=== PATIENT | male | born 1995 | race Two or more races ===

== ENCOUNTER 2025-07-20 15:36 | Observation (INO) ==
--- NOTE | 2025-07-20 16:04 | Emergency Department Note ---
Impression & Plan Acute hypoxic respiratory failure, Acute asthma exacerbation, Rhinovirus infection ED Provider Note NAME: BAILEY DOOLEY AGE: 30 SEX: M : 1995 ARRIVES VIA: Walk-In INFORMANT: Patient ED PROVIDER(S): Brayan Adkins DO CHIEF COMPLAINT: Cough, congestion, shortness of breath, sore throat HPI: Patient is a 30-year-old male with a past medical history of asthma who presents to the ER for cough, congestion and shortness of breath. Symptoms initially started on Wednesday and have worsened. Has been using his neb treatment with minimal improvement but then it has been getting worse again. He denies any headache or change in vision. No chest pain. No belly pain. No nausea, vomiting, or diarrhea. Family at bedside provides additional history notes that he does have a history of asthma. Has been using those nebs. ADDITIONAL HISTORY OBTAINED: Per HPI Chronic Medical/Social Conditions Affecting Care: Per HPI PAST MEDICAL HISTORY:See Below PAST SURGICAL HISTORY:See Below FAMILY HISTORY:See Below SOCIAL HISTORY:See Below HOME MEDICATIONS:See Below ALLERGIES:See Below VITALS:See Below PHYSICAL EXAMINATION: GENERAL: Sitting up in bed, alert, on oxygen, persistent cough EYE EXAM: normal conjunctiva. PERRL and EOM's grossly intact. OROPHARYNX: no exudate, no erythema, lips, buccal mucosa, and tongue normal and mucous membranes are moist NECK: supple, no nuchal rigidity, no adenopathy, non-tender LUNGS: Diffuse wheezing bilaterally. Normal chest wall mechanics HEART: no murmurs, S1 normal and S2 normal ABDOMEN: abdomen soft, non-tender, normo-active bowel sounds, no masses, no rebound or guarding. UPPER EXTREMITIES: upper extremities are grossly normal. LOWER EXTREMITIES: No pitting edema. NEURO EXAM: Normal sensorium, cranial nerves II-XII grossly intact, normal speech, no gross weakness of arms, no gross weakness of legs. MEDICAL DECISION MAKING: Patient is a 21-year-old male who presents ER for shortness of breath associate with cough congestion. IVs were established and blood work was obtained. On exam he was found to have diffuse wheezing bilaterally. He was on oxy mask. Patient was given hour-long DuoNeb as well as IV steroids. Oxygen was titrated down to eventually 2 L nasal cannula. Chest x-ray without any focal infiltrate. Respiratory rate did improve. He is feeling better. Labs show mild leukocytosis of 11,000. No significant anemia. BMP with LFTs troponin and lipase is unremarkable. Viral panel was positive for rhinovirus. With the hypoxia case was discussed with the hospitalist for further evaluation management and treatment. Consults/Care Managements Discussions: Per MDM Triage Nursing notes reviewed. Limited review of prior medical records performed Vital Signs: reviewed and remarkable for tachy Differential diagnosis: Differential diagnoses includes but is not limited to pneumonia, bronchitis, COPD/Asthma exacerbation, pneumothorax, pulmonary embolism, congestive heart failure, acute coronary syndrome ER treatment provided: See below Diagnostics interpreted by me include EKG and cardiac monitoring as listed below: -Cardiac Monitoring: An order was placed for continuous cardiac monitoring. The monitor shows a rate of 112 with sinus rhythm. -ECG: Sinus tachycardia rate of 112 Normal axis No PVCs QTc 444 -Laboratory studies:Interpreted by me as stated above in MDM and shown below. Imaging studies: Xrays: As interpreted by me: Portable AP upright 1 view of the chest shows no focal infiltrate CTs show: none Procedures:none Critical Care: I have personally spent 33 minutes of critical care time in the direct management of this patient. This includes bedside care, interpretation of diagnostic studies, and testing, discussion with consultants, patient, and family members, and other required patient management activities. This 33 minutes is in excess of all separately billable procedures. Past Med/Surg History Problem List (Updated 07/20/25 @ 17:59 by Brayan Adkins DO) Acute hypoxic respiratory failure (Acute) Acute bronchitis Rhinovirus infection (Acute) Acute asthma exacerbation (Acute) Social History Smoking Status: Never smoker Preferred Language: Bolivian Feels Safe at Home: Yes Allergies Allergies Allergy/AdvReac Type Severity Reaction Status Date / Time No Known Allergies Allergy Unverified 07/20/25 17:00 Home Meds Home Medications Medication Instructions Recorded Confirmed albuterol sulfate 90 mcg/actuation 2 inh inhalation Q4H PRN 07/20/25 07/20/25 aerosol inhaler SOB/Wheezing Results & Data (ED) Vital Signs Vital Signs - 24 hr 07/20/25 15:43 07/20/25 15:59 07/20/25 16:06 Temperature 37.1 C Temperature Source Temporal Artery Scan Pulse Rate 119 H 112 H Pulse Rate from SpO2 Sensor 112 H Respiratory Rate 20 31 H Respiratory Effort / Characteristics Non-Labored Spontaneous Respiratory Depth Normal Blood Pressure 129/84 145/92 H Blood Pressure Mean 99 109 Pulse Oximetry 86 L 92 Oxygen Delivery Method Room Air Oxymask Oxymask Oxygen Flow Rate 8 8 Sepsis Recent Fever Within 48 Hours No Sepsis New/Unexplained Change in Mental Status No Sepsis Action Taken by Nursing No Action Required 07/20/25 16:15 07/20/25 16:30 07/20/25 16:45 Temperature Temperature Source Pulse Rate 108 H 111 H 122 H Pulse Rate from SpO2 Sensor 108 H 118 H 122 H Respiratory Rate 29 H 25 H 25 H Respiratory Effort / Characteristics Respiratory Depth Blood Pressure 117/77 117/77 125/72 Blood Pressure Mean 90 90 89 Pulse Oximetry 92 94 95 Oxygen Delivery Method Oxymask Oxymask Oxymask Oxygen Flow Rate 8 8 8 Sepsis Recent Fever Within 48 Hours Sepsis New/Unexplained Change in Mental Status Sepsis Action Taken by Nursing 07/20/25 17:00 07/20/25 17:03 07/20/25 17:15 Temperature Temperature Source Pulse Rate 131 H 113 H 122 H Pulse Rate from SpO2 Sensor 130 H 121 H Respiratory Rate 24 24 Respiratory Effort / Characteristics Respiratory Depth Blood Pressure 125/72 133/91 Blood Pressure Mean 89 105 Pulse Oximetry 91 89 L Oxygen Delivery Method Room Air Room Air Oxygen Flow Rate Sepsis Recent Fever Within 48 Hours Sepsis New/Unexplained Change in Mental Status Sepsis Action Taken by Nursing 07/20/25 17:30 Temperature Temperature Source Pulse Rate 117 H Pulse Rate from SpO2 Sensor 117 H Respiratory Rate 24 Respiratory Effort / Characteristics Respiratory Depth Blood Pressure 133/91 Blood Pressure Mean 105 Pulse Oximetry 91 Oxygen Delivery Method Nasal Cannula Oxygen Flow Rate 2 Sepsis Recent Fever Within 48 Hours Sepsis New/Unexplained Change in Mental Status Sepsis Action Taken by Nursing Laboratory Data 07/20/25 16:02 07/20/25 16:02 Lab Results 07/20/25 07/20/25 Range/Units 16:02 16:16 WBC 11.42 H (4.8-10.8) K/ul RBC 5.95 (4.70-6.10) M/uL Hgb 17.9 (14.0-18.0) g/dL Hct 48.8 (42.0-52.0) % MCV 82.0 (80.0-100.0) fL MCH 30.1 (25.0-34.0) pg MCHC 36.7 H (32.0-36.0) g/dL RDW Std Deviation 36.8 (36.4-46.3) fL RDW Coeff of Izabella 12.4 (11.5-14.5) % Plt Count 210 (130-400) K/uL MPV 10.1 (9.4-12.4) fL Immature Gran % (Auto) 0.2 % Neut % (Auto) 62.9 % Lymph % (Auto) 22.6 % Runnels % (Auto) 10.1 % Eos % (Auto) 3.8 % Baso % (Auto) 0.4 % Neut # (Auto) 7.20 H (1.40-6.50) K/uL Lymph # (Auto) 2.58 (1.20-3.40) K/uL Runnels # (Auto) 1.15 H (0.11-0.59) K/uL Eos # (Auto) 0.43 (0.00-0.50) K/uL Baso # (Auto) 0.04 (0.00-0.20) K/uL Immature Gran # (Auto) 0.02 (0.01-0.20) K/uL Sodium 137 (136-145) mmol/L Potassium 3.8 (3.5-5.1) mmol/L Chloride 101 (98-107) mmol/L Carbon Dioxide 26 (21-32) mmol/L Anion Gap 10 (3-11) BUN 12 (6-23) mg/dl Creatinine 1.20 (0.6-1.4) mg/dl Est Cr Clr Drug Dosing 105.6 ml/min eGFR 83.95 BUN/Creatinine Ratio 10.0 (10-20) Glucose 110 H (70-99(Fasting)) mg/dl Calcium 9.2 (8.6-10.3) mg/dl Total Bilirubin 1.8 H (0.2-1.0) mg/dl AST 27 (13-39) U/L ALT 19 (7-52) U/L Alkaline Phosphatase 91 (34-104) U/L Troponin I High Sens 2.3 (0-20) pg/ml Total Protein 7.7 (6.0-8.3) gm/dl Albumin 4.8 (3.4-5.0) gm/dl Globulin 2.9 (2.5-4.0) gm/dl Albumin/Globulin Ratio 1.7 (0.9-2) Lipase 7 L (11-82) U/L Procalcitonin < 0.02 (0-0.5) ng/ml Adenovirus (PCR) Not Detected (NotDetected) B. pertussis DNA (PCR) Not Detected (NotDetected) B.parapertussis DNA PCR Not Detected (NotDetected) C. pneumoniae DNA (PCR) Not Detected (NotDetected) Coronavirus OC43 (PCR) Not Detected (NotDetected) Coronavirus HKU1 (PCR) Not Detected (NotDetected) Coronavirus 229E (PCR) Not Detected (NotDetected) SARS-CoV-2 (PCR) Not Detected (NotDetected) Coronavirus NL63 (PCR) Not Detected (NotDetected) Human Metapneumovir PCR Not Detected (NotDetected) Influenza Type A (PCR) Not Detected (NotDetected) Influenza Type B (PCR) Not Detected (NotDetected) M. pneumoniae (PCR) Not Detected (NotDetected) Parainfluenza 1 (PCR) Not Detected (NotDetected) Parainfluenza 2 (PCR) Not Detected (NotDetected) Parainfluenza 3 (PCR) Not Detected (NotDetected) Parainfluenza 4 (PCR) Not Detected (NotDetected) RSV (PCR) Not Detected (NotDetected) Entero/Rhino (PCR) DETECTED A (NotDetected) Administered Medications Doxycycline Hyclate (Doxycycline Hyclate 100 Mg Cap) 100 mg PO BID [facility] Stop: 07/25/25 17:14 Last Admin: 07/20/25 17:25 Dose: 100 mg Documented By: KR Discontinued Medications Albuterol (Albut/Ipratrop 3mg/0.5mg Neb 3 Ml Vial) 9 ml NEB NOW STA; Protocol Stop: 07/20/25 16:02 Last Admin: 07/20/25 16:08 Dose: 9 ml Documented By: ARS Magnesium Sulfate/Dextrose (Magnesium Sulfate / D5w) 1 gm in 100 mls @ 100 mls/hr IV NOW STA Stop: 07/20/25 17:53 Last Admin: 07/20/25 17:01 Dose: 100 mls/hr Documented By: TOMEKA Ioversol (Optiray 320 125ml) 119 ml IV ONCE ONE Stop: 07/20/25 18:29 Last Admin: 07/20/25 18:29 Dose: 119 ml Documented By: YAIR Methylprednisolone (Methylprednisolone 125 Mg/2 Ml Vial) 80 mg IV NOW STA Stop: 07/20/25 16:02 Last Admin: 07/20/25 16:08 Dose: 80 mg Documented By: TOMEKA Imaging Data Radiologist's Impression: Chest X-Ray 07/20/25 16:01 Clinical History: Chest pain Technique: A frontal view of the chest was obtained Findings: There are no confluent pulmonary infiltrates. The heart size is within normal limits. No pleural effusion or pneumothorax is seen. There is no definite pulmonary nodule. No fracture is noted. No foreign body is seen Impression: No active disease Electronically signed by Oswaldo Osei 07-20-2025 4:39 PM Chest CTA 07/20/25 16:52 Clinical history: Chest pain and shortness of breath Technique: Axial computed tomography images were obtained of the chest after the administration of intravenous contrast according to the CT angiogram protocol Findings: There is no definite sign of pulmonary embolism. There is a cluster of nodular opacities in the anterior right lower lobe, measuring up to 7 mm. There is a small right pleural effusion. There is no left pleural effusion or pneumothorax. There is dependent subsegmental atelectasis in both lower lobes. No endobronchial lesion is seen There is no mediastinal, hilar, or axillary adenopathy. The thoracic aorta appears unremarkable with no sign of aneurysm or dissection. There is no pericardial effusion The visualized upper abdomen appears unremarkable. No fracture is seen. No focal osseous lesion is evident Impression: 1. No definite sign of pulmonary embolism 2. Cluster of nodular opacities in the right lower lobe that could be due to pneumonia 3. Small right pleural effusion Electronically signed by Oswaldo Osei 07-20-2025 7:24 PM Discharge Plan Visit Data Chief Complaint: Respiratory Problems Stated Complaint: DIFFICULTY BRATHING PULSE OX LOW AT HOME ED Provider: Brayan Adkins Discharge Problem: Acute hypoxic respiratory failure, Acute asthma exacerbation, Rhinovirus infection Condition: Critical Forms Stand Alone Forms: [employer] Prescriptions Prescriptions: No Action albuterol sulfate 90 mcg/actuation Hfa Aerosol Inhaler 2 inh INHALATION Q4H PRN (Reason: SOB/Wheezing) Referrals Referrals: PCP,NO [Physician] - Discharge Problem: Acute asthma exacerbation Qualifiers: Asthma severity: unspecified severity Asthma persistence: unspecified Qualified Code(s): J45.901 - Unspecified asthma with (acute) exacerbation
[2025-07-20] MEDS: ALBUT/IPRATROP 3MG/0.5MG NEB 3 ML VIAL NEB STA (16:08)
[2025-07-20 16:19] LABS: Hematocrit (blood only) 48.8 % (42.0-52.0); Hemoglobin 17.9 g/dL (14.0-18.0); Immature Granulocytes # (auto) 0.02 K/uL (0.01-0.20); Immature Granulocytes % (auto) 0.2 %; Mean Corpuscular Hemoglobin 30.1 pg (25.0-34.0); Mean Corpuscular Volume 82.0 fL (80.0-100.0); Platelet Count 210 K/uL (130-400); RDW Standard Deviation 36.8 fL (36.4-46.3); Red Blood Count 5.95 M/uL (4.70-6.10); White Blood Count 11.42 K/ul (4.8-10.8)
[2025-07-20 16:37] LABS: Alanine Aminotransferase 19.0 U/L (7-52); Albumin Globulin Ratio 1.7 (0.9-2); Albumin Level 4.8 gm/dl (3.4-5.0); Alkaline Phosphatase 91.0 U/L (34-104); Anion Gap 10.0 (3-11); Bilirubin,Total 1.8 mg/dl (0.2-1.0); Blood Urea Nitrogen 12.0 mg/dl (6-23); Calcium 9.2 mg/dl (8.6-10.3); Carbon Dioxide 26.0 mmol/L (21-32); Chloride 101.0 mmol/L (98-107); Creatinine Clr Calc Pharmacy 105.6 ml/min; Globulin 2.9 gm/dl (2.5-4.0); Glucose 110.0 mg/dl (70-99(Fasting)); Lipase 7.0 U/L (11-82); Potassium 3.8 mmol/L (3.5-5.1); Sodium 137.0 mmol/L (136-145); Total Protein 7.7 gm/dl (6.0-8.3)
--- NOTE | 2025-07-20 16:39 | XRay Report ---
Clinical History: Chest pain Technique: A frontal view of the chest was obtained Findings: There are no confluent pulmonary infiltrates. The heart size is within normal limits. No pleural effusion or pneumothorax is seen. There is no definite pulmonary nodule. No fracture is noted. No foreign body is seen Impression: No active disease Electronically signed by Oswaldo Osei 07-20-2025 4:39 PM
--- NOTE | 2025-07-20 16:55 | History & Physical Report ---
Date of Service July 20, 2025 Assessment & Plan (1) Acute asthma exacerbation: (2) Rhinovirus infection: (3) Acute bronchitis: (4) Acute hypoxic respiratory failure: Plan Patient is a 30-year-old male with past medical history significant for asthma who presented to the ED with c/o cough, congestion and progressive shortness of breath since earlier this week. Acute asthma exacerbation Acute bronchitis ISO rhinovirus infection Acute hypoxic respiratory failure Notably tachycardic and tachypneic on arrival to ED with respiratory rate in the 30s. Initially required 8L via Oxymask. At the time of our evaluation in the ED around 17:00, patient was saturating around 89 to 91% on RA. HR in the 130s s/p hour-long Duoneb in ED >> likely albuterol as well as tachypnea c/t tachycardia. RR now slightly improved. Also received 80 mg IV Solu-Medrol in the ED. Mild leukocytosis appreciated on initial labs, otherwise labs look okay. Check procalcitonin. (+) for entero-/rhinovirus on respiratory BioFire panel. CXR without evidence of any active disease. Will place on 1L NC for now given low sats on RA and monitor. Check chest CT PE protocol. Remains afebrile, BP stable. Reports productive cough of yellow/green sputum, will empirically start on po doxy course. Pt reports 5 asthma exacerbations/year >> not currently on any maintenance inhalers. Reports asthma triggers including cat dander, cold weather exposure. Would likely benefit from allergy testing; would also consider maintenance inhaler initiation. DVT Prophylaxis: SCDs/TEDs for now pending chest CTA results, encourage ambulation as tolerated Code Status: FULL CODE PCP: Janes Fink MD Disposition: Admit to med/telemetry Patient seen in collaboration with Dr. Starks. Please see addendum. I spent a total of 70 minutes coordinating, documenting, and providing care for this patient excluding time spent in the performance of separately billed services or time spent by another provider/QHP. This included personally reviewing all current laboratories and imaging studies, medical reconciliation, outpatient chart review and discussion with specialists. This chart was completed in part utilizing Speech Voice Recognition Software. Grammatical errors, random word insertions, pronoun errors, and incomplete sentences are an occasional consequence of this system due to software limitations, ambient noise, and hardware issues. Any formal questions or concerns about the content, text, or information contained within the body of this dictation should be directly addressed to the provider for clarification. History of Present Illness Chief Complaint: Cough, congestion and SOB Primary Care Provider: NO PCP Patient is a 30-year-old male with past medical history significant for asthma who presented to the ED with c/o cough, congestion and shortness of breath. History obtained from the patient, patient's significant other at bedside, discussion with ED provider and associated chart review. Patient seen at bedside in the ED with Dr. Starks. Started with upper respiratory symptoms this past Wednesday including productive cough, chest congestion and shortness of breath. No known sick contacts. No reported fevers. Notable progressive shortness of breath over the past couple of days despite compliance with his albuterol rescue inhaler. Cough productive of yellow/green sputum. Experiences approximately 5 asthma exacerbations per year. Not currently on any maintenance inhalers. Notes cat dander exposure and cold exposure typically exacerbate his asthma. Denies any tobacco use. Rare alcohol use. No personal history or family history of blood clotting disorders. Notably tachycardic and tachypneic on arrival to ED with respiratory rate in the 30s. Initially required 8L via Oxymask. At the time of our evaluation in the ED around 5PM, patient was saturating around 89 to 91% on RA. HR remained in the 130s s/p hour-long DuoNeb. Also received 80 mg IV Solu-Medrol in the ED. Remains afebrile. Positive for entero-/rhinovirus. Allergies Allergy/AdvReac Type Severity Reaction Status Date / Time No Known Allergies Allergy Unverified 07/20/25 17:00 Home Medications Medication Instructions Recorded Confirmed Type albuterol sulfate 90 mcg/actuation 2 inh inhalation Q4H PRN 07/20/25 07/20/25 History aerosol inhaler SOB/Wheezing Past Med/Surg History Problem List (Updated 07/20/25 @ 17:59 by Brayan Adkins DO) Acute hypoxic respiratory failure (Acute) Acute bronchitis Rhinovirus infection (Acute) Acute asthma exacerbation (Acute) Social History Smoking Status: Never smoker Preferred Language: Bruneian Feels Safe at Home: Yes Review of Systems Review of Systems: At least ten systems reviewed and negative, except as noted in the HPI. Physical Exam Physical Exam: Please refer to Dr. Starks's addendum for physical examination findings. Results & Data Results & Data Vital Signs (Past 12 Hours) Vital Signs Temp Pulse Resp BP Pulse Ox O2 Del Method O2 Flow Rate 07/20/25 15:59 Oxymask 8 07/20/25 15:43 37.1 C 119 H 20 129/84 86 L Room Air Laboratory Results Short CBC 07/20/25 Range/Units 16:02 WBC 11.42 H (4.8-10.8) K/ul Hgb 17.9 (14.0-18.0) g/dL Hct 48.8 (42.0-52.0) % Plt Count 210 (130-400) K/uL BMP 07/20/25 16:02 Sodium 137 Potassium 3.8 Chloride 101 Carbon Dioxide 26 BUN 12 Creatinine 1.20 Glucose 110 H Calcium 9.2 Liver Function 07/20/25 Range/Units 16:02 Total Bilirubin 1.8 H (0.2-1.0) mg/dl AST 27 (13-39) U/L ALT 19 (7-52) U/L Alkaline Phosphatase 91 (34-104) U/L Albumin 4.8 (3.4-5.0) gm/dl Diagnostic Findings Chest X-Ray 07/20/25 16:01 Clinical History: Chest pain Technique: A frontal view of the chest was obtained Findings: There are no confluent pulmonary infiltrates. The heart size is within normal limits. No pleural effusion or pneumothorax is seen. There is no definite pulmonary nodule. No fracture is noted. No foreign body is seen Impression: No active disease Electronically signed by Oswaldo Osei 07-20-2025 4:39 PM Medications Administered Discontinued Medications Albuterol (Albut/Ipratrop 3mg/0.5mg Neb 3 Ml Vial) 9 ml NEB NOW STA; Protocol Stop: 07/20/25 16:02 Last Admin: 07/20/25 16:08 Dose: 9 ml Documented By: TOMEKA Methylprednisolone (Methylprednisolone 125 Mg/2 Ml Vial) 80 mg IV NOW STA Stop: 07/20/25 16:02 Last Admin: 07/20/25 16:08 Dose: 80 mg Documented By: TOMEKA Supervising Physician Co-Signing Physician Notes Patient is a 30-year-old male with history of asthma and no other significant past medical history presents with history of cough with greenish expectoration, chest congestion, shortness of breath, wheezing and rhinitis which has been gradually worsening since Wednesday. Patient admits to use rescue inhaler as needed and currently not on any maintenance inhalers. He reports that his asthma exacerbation is related to cold exposure, exposure to cats and about 5 times per year. He had an exposure to a family member with similar upper respiratory tract symptoms. Please review HPI for complete details of presentation. I personally reviewed blood work and imaging studies. EKG showed sinus tachycardia, findings suggestive of right atrial enlargement, QTc 444. Physical Exam: Vitals signs as noted above General Appearance:Moderately built and nourished, no apparent distress Head: normocephalic, Atraumatic Eyes: normal inspection, EOMI Neck: supple, Trachea midline Respiratory/Chest: Normal breath sounds, B/L wheezing, No accessory muscle use Cardiovascular: S1, S2, No murmur,+Tachycardia Abdomen/GI:Soft, Non tender, Bowel sounds present Extremities/Musculoskeletal:normal inspection, no edema Neurologic/Psych:AAOX3, grossly no focal neurological deficits Skin: normal color, warm Acute asthma exacerbation Rhinovirus infection/viral bronchitis Sinus tachycardia -- BioFire positive for rhinovirus --Chest x-ray within normal limits Will obtain CTA to rule out PE Agree with RITIKA Leblanc Solu-Meddarrin Check procalcitonin, empirical start on doxycycline Supplemental oxygen as needed I personally interviewed and examined the patient at bedside. I have reviewed the advanced practitioner's documentation on the date of service referred in note and agree with plan. Patient's care is coordinated with Tamara Sorto PA-C. Please refer to the documentation above for details of patient's presentation and for discussion of other issues. I spent a total [id number] coordinating, documenting, and providing care for this patient excluding time spent in the performance of separately billed services or time spent by another provider/QHP.
[2025-07-20] MEDS: MAGNESIUM SULFATE / D5W 1 GM/100 ML BAG IV STA (17:01)
[2025-07-20 17:17] LABS: Chlamydia pneumoniae PCR Not Detected (NotDetected); Coronavirus 229E PCR Not Detected (NotDetected); Coronavirus CoV-2 (COVID19)PCR Not Detected (NotDetected); Coronavirus HKU1 PCR Not Detected (NotDetected); Coronavirus NL63 PCR Not Detected (NotDetected); Coronavirus OC43PCR Not Detected (NotDetected); Human Metapneumovirus PCR Not Detected (NotDetected); Parainfluenza Virus 1 PCR Not Detected (NotDetected); Parainfluenza Virus 2 PCR Not Detected (NotDetected); Parainfluenza Virus 3 PCR Not Detected (NotDetected); Parainfluenza Virus 4 PCR Not Detected (NotDetected); Respiratory Syncytial VirusPCR Not Detected (NotDetected); Rhinovirus/Enterovirus PCR DETECTED (NotDetected)
[2025-07-20] MEDS: DOXYCYCLINE HYCLATE 100 MG CAP PO SCH (17:25)
[2025-07-20] MEDS: OPTIRAY 320 125ml IV ONE (18:29)
--- NOTE | 2025-07-20 19:25 | CT Scan Report ---
Clinical history: Chest pain and shortness of breath Technique: Axial computed tomography images were obtained of the chest after the administration of intravenous contrast according to the CT angiogram protocol Findings: There is no definite sign of pulmonary embolism. There is a cluster of nodular opacities in the anterior right lower lobe, measuring up to 7 mm. There is a small right pleural effusion. There is no left pleural effusion or pneumothorax. There is dependent subsegmental atelectasis in both lower lobes. No endobronchial lesion is seen There is no mediastinal, hilar, or axillary adenopathy. The thoracic aorta appears unremarkable with no sign of aneurysm or dissection. There is no pericardial effusion The visualized upper abdomen appears unremarkable. No fracture is seen. No focal osseous lesion is evident Impression: 1. No definite sign of pulmonary embolism 2. Cluster of nodular opacities in the right lower lobe that could be due to pneumonia 3. Small right pleural effusion Electronically signed by Oswaldo Osei 07-20-2025 7:24 PM
[2025-07-20] MEDS ORDERED: ACETAMINOPHEN 325 MG TAB PO PRN (21:07)
[2025-07-20] MEDS ORDERED: ONDANSETRON INJ 2 MG/ML 2 ML VIAL IV PRN (21:07)
[2025-07-20] MEDS ORDERED: POLYETHYLENE (MIRALAX) 17 GM PACK PO PRN (21:07)
[2025-07-20] MEDS ORDERED: MAGNESIUM HYDROXIDE SUSP 30 ML UDC PO PRN (21:07)
[2025-07-20] MEDS: guaiFENesin 600 MG TABCR PO SCH (21:12)
[2025-07-20] MEDS: LEVALBUTEROL HCL 0.63 MG/3 ML NEB NEB PRN (22:40)
[2025-07-20] MEDS: IPRATROPIUM BROMIDE NEB SOLN 0.02% 0.5MG/2.5ML VIAL NEB SCH (22:41)
[2025-07-21 07:02] LABS: Hematocrit (blood only) 47.1 % (42.0-52.0); Hemoglobin 17.5 g/dL (14.0-18.0); Mean Corpuscular Hemoglobin 30.3 pg (25.0-34.0); Mean Corpuscular Volume 81.5 fL (80.0-100.0); Platelet Count 222 K/uL (130-400); RDW Standard Deviation 36.4 fL (36.4-46.3); Red Blood Count 5.78 M/uL (4.70-6.10); White Blood Count 11.65 K/ul (4.8-10.8)
[2025-07-21 07:33] LABS: Anion Gap 8.0 (3-11); Blood Urea Nitrogen 14.0 mg/dl (6-23); Calcium 9.5 mg/dl (8.6-10.3); Carbon Dioxide 25.0 mmol/L (21-32); Chloride 103.0 mmol/L (98-107); Creatinine Clr Calc Pharmacy 123.0 ml/min; Glucose 126.0 mg/dl (70-99(Fasting)); Magnesium 2.1 mg/dl (1.7-2.4); Potassium 4.6 mmol/L (3.5-5.1); Sodium 136.0 mmol/L (136-145)
--- NOTE | 2025-07-21 08:25 | Electrocardiogram Report ---
Test Reason : Blood Pressure : */* mmHG Vent. Rate : 112 BPM Atrial Rate : 112 BPM P-R Int : 186 ms QRS Dur : 88 ms QT Int : 326 ms P-R-T Axes : 83 70 79 degrees QTcB Int : 444 ms Sinus tachycardia Right atrial enlargement Borderline ECG No previous ECGs available Confirmed by Anival Lujan ([id number]) on 07/21/2025 8:25:00 AM Referred By: Confirmed By: Anival Lujan
[2025-07-21] MEDS: ALBUT/IPRATROP 3MG/0.5MG NEB 3 ML VIAL NEB SCH (10:47)
--- NOTE | 2025-07-21 11:55 | Hospitalist Progress Note ---
Date of Service July 21, 2025 Assessment & Plan (1) Acute hypoxic respiratory failure: (2) Viral pneumonia: (3) Rhinovirus infection: (4) Acute asthma exacerbation: (5) Acute bronchitis: Plan Patient 30-year-old gentleman with acute exacerbation of asthma hypoxia due to rhinovirus pneumonia. Will schedule DuoNeb with as needed Xopenex nebulizers Transition to oral steroids Antitussives and mucolytics Titrate oxygen as able Okay to [facility] Admission and Anticipated Discharge Date Admission Date: July 20, 2025 Subjective Patient is feeling little bit better but definitely felt short of breath and tachypneic with any type of activity. O2 sat dropped into the 80s quits walking to the bathroom. Patient describes his asthma as mild and intermittent and exercise-induced. Only has rescue inhaler at home Physical Exam Physical Exam: Constitutional: Alert, nontoxic, no acute distress at rest HEENT: Mucous membranes moist. Lungs: Decreased breath sounds, few expiratory wheezes, improved airflow CV: S1-S2, regular Abdomen: Soft, nontender, nondistended Extremities: No significant edema Neuro: No focal deficits Psych: Cooperative, normal mood Results & Data Results & Data Vital Signs (Past 12 Hours) Vital Signs Temp Pulse Pulse Resp BP BP Pulse Ox 07/21/25 11:23 36.7 C 101 H 20 134/76 90 07/21/25 10:47 103 H 18 93 07/21/25 07:45 07/21/25 07:41 71 07/21/25 07:40 36.7 C 95 H 20 150/74 H 90 07/21/25 07:25 100 H 18 91 07/21/25 03:44 36.5 C 82 20 114/71 92 O2 Del Method O2 Flow Rate 07/21/25 11:23 Nasal Cannula 4 07/21/25 10:47 Nasal Cannula 4 07/21/25 07:45 Nasal Cannula 4 07/21/25 07:41 07/21/25 07:40 Nasal Cannula 4 07/21/25 07:25 Nasal Cannula 4 07/21/25 03:44 Nasal Cannula 4 Diagnostic Findings Reviewed imaging, laboratory and diagnostic studies. Pertinent findings as below. WBCs 11.6 Hemoglobin 17.5 Electrolytes stable Creatinine 1.03 Procalcitonin less than 0.02 (4) Acute asthma exacerbation Asthma persistence: unspecified Asthma severity: unspecified severity Qualified Code(s): J45.901 - Unspecified asthma with (acute) exacerbation
--- NOTE | 2025-07-22 10:49 | Hospitalist Progress Note ---
Date of Service July 22, 2025 Assessment & Plan (1) Acute hypoxic respiratory failure: (2) Viral pneumonia: (3) Rhinovirus infection: (4) Acute asthma exacerbation: (5) Acute bronchitis: Plan Patient with acute hypoxic respiratory failure in the setting of the asthma exa cerbation due to rhinovirus bronchitis/pneumonia. Patient is slowly improving. Continue oral prednisone continue scheduled nebulizer treatments Titrate oxygen down as able, was able to titrate him to 2-1/2 L while in the room Continue antitussives and mucolytics Incentive spirometer Encourage activity Admission and Anticipated Discharge Date Admission Date: July 20, 2025 Subjective Patient states he feels a little bit less short of breath with activity. Actually doing some static exercises in his room. Significant other at bedside Physical Exam Physical Exam: Constitutional: Alert, no acute distress HEENT: Mucous membranes moist. Lungs: Decreased breath sounds, somewhat improved airflow, few scattered wheezes CV: S1-S2, regular Abdomen: Soft, nontender, nondistended Extremities: No significant edema Neuro: No focal deficits Psych: Cooperative, normal mood Results & Data Results & Data Vital Signs (Past 12 Hours) Vital Signs Temp Pulse Resp BP Pulse Ox O2 Del Method O2 Flow Rate 07/22/25 09:52 Nasal Cannula 2.5 07/22/25 07:36 70 16 95 Nasal Cannula 3 07/22/25 07:23 36.5 C 65 18 116/74 95 Nasal Cannula 3 07/21/25 23:17 36.5 C 75 18 102/63 93 Nasal Cannula 3 (4) Acute asthma exacerbation Asthma persistence: unspecified Asthma severity: unspecified severity Qualified Code(s): J45.901 - Unspecified asthma with (acute) exacerbation
[2025-07-22] MEDS ORDERED: SODIUM CHLORIDE 0.65% NA SOLN 45 ML (OCEAN) PRN (17:42)
[2025-07-22] MEDS: SODIUM CHLORIDE 0.65% NA SOLN 45 ML (OCEAN) ONE (22:56)
[2025-07-22 23:02] VITALS: TEMP 97.9
[2025-07-23 07:38] VITALS: BP 145/80; O2SAT 93
[2025-07-23 10:59] VITALS: PULSE 90; RESP 16
--- NOTE | 2025-07-23 12:21 | Discharge Summary ---
Discharge Summary Date of Service July 23, 2025 Principal Dx & Hospital Course #1 = Principal Diagnosis (1) Acute hypoxic respiratory failure: (2) Viral pneumonia: (3) Rhinovirus infection: (4) Acute asthma exacerbation: (5) Acute bronchitis: Plan Patient is a 30-year-old gentleman with a history of mild intermittent and exercise-induced asthma presented to the emergency room with increasing congestion, cough and shortness of breath. In the emergency room was noted to be hypoxic and tested positive for rhinovirus. Imaging was consistent with a viral pneumonia. Patient was admitted to the hospital. He was supported with oxygen. He started on steroids and nebulizer treatments. Through the course of his hospitalization he slowly improved. He will start on doxycycline for anti- inflammatory effects. He was transition to oral steroids. His oxygen was titrated down. On the day of discharge he been off oxygen for several hours. Has maintained an O2 sat greater than 90%. Patient reports he even did some ex ercises including body weight squats, jumping jacks, fast pace walking in his room and his O2 sat actually improved to the upper 90s. He had no further chest pain. Cough was improved. Will be discharged home to follow-up with his outpatient providers. Notes For Next Care Provider Patient will need ongoing evaluation to determine if his mild persistent asthma has progressed to persistent and may need daily asthma treatment Medication Changes From Visit Prednisone for 2 more days Doxycycline for 1 more day Mucinex as needed for cough Admission HPI Per Admitting Provider Patient is a 30-year-old male with past medical history significant for asthma who presented to the ED with c/o cough, congestion and shortness of breath. History obtained from the patient, patient's significant other at bedside, discussion with ED provider and associated chart review. Patient seen at bedside in the ED with Dr. Starks. Started with upper respiratory symptoms this past Wednesday including productive cough, chest congestion and shortness of breath. No known sick contacts. No reported fevers. Notable progressive shortness of breath over the past couple of days despite compliance with his albuterol rescue inhaler. Cough productive of yellow/green sputum. Experiences approximately 5 asthma exacerbations per year. Not currently on any maintenance inhalers. Notes cat dander exposure and cold exposure typically exacerbate his asthma. Denies any tobacco use. Rare alcohol use. No personal history or family history of blood clotting disorders. Notably tachycardic and tachypneic on arrival to ED with respiratory rate in the 30s. Initially required 8L via Oxymask. At the time of our evaluation in the ED around 5PM, patient was saturating around 89 to 91% on RA. HR remained in the 130s s/p hour-long DuoNeb. Also received 80 mg IV Solu-Medrol in the ED. Remains afebrile. Positive for entero-/rhinovirus. Admission Exam Per Admitting Provider See H&P Discharge Exam Constitutional: Alert nontoxic HEENT: Mucous membranes moist. Lungs: improved airflow, few scattered wheezes CV: S1-S2, regular Abdomen: Soft, nontender, nondistended Extremities: No significant edema Neuro: No focal deficits Psych: Cooperative, normal mood Updated Medication List Medication Instructions Recorded Confirmed Type albuterol sulfate 90 mcg/actuation 2 inh inhalation Q4H PRN 07/23/25 Rx aerosol inhaler SOB/Wheezing #8.5 grams doxycycline hyclate 100 mg capsule 100 mg PO BID #3 caps 07/23/25 Rx guaifenesin 600 mg tablet, 1,200 mg (2 x 600 mg) PO Q12 PRN 07/23/25 Rx extended release 12 hr (Mucinex) cough/congestion #30 tabs prednisone 50 mg tablet 50 mg PO DAILY 2 days #2 tabs 07/23/25 Rx Hospital Stay Data Consultations 07/20/25 16:45 ED Decision to Admit Stat Diagnostic Imagining Performed 07/20/25 16:52 CT angio chest PE protocol Stat Reviewed imaging, laboratory and diagnostic studies. Pertinent findings as below. CBC stable BMP stable Respiratory viral panel positive for rhinovirus CTA of the chest: Negative for pulmonary embolism, some nodular opacities right lower lobe consistent with viral pneumonia. Pending Results Patient Have Any Pending Studies at Discharge: No Discharge Instructions Given to Patient (Per Discharging Provider) Follow-up with your PCP for ongoing management of your asthma Total Time Total Time Spent Total Time Spent (In Minutes): 25
== END 2025-07-23 13:28 | disposition home or self-care (01) ==
LOC: ED 15:36 → SUATTDRO 17:34 → 2W 17:34 → INTOOBSV 17:34 → 2W 20:37 → 3E 07-21 18:20